=== PATIENT | female | born 1990 | race Two or more races ===

== ENCOUNTER 2020-11-09 13:45 | Inpatient (IN) | payer OTHER ==
[~2020-11-09] VITALS: Ht 162.6 cm; Wt 92.1 kg
[2020-11-25] MEDS ORDERED: PRENATAL CAPLE1 EAC1 PO (11:23)
[2020-11-25] MEDS ORDERED: FOLIC ACID20 MG PO (11:23)
== END 2020-11-27 13:41 | disposition home or self-care (01) | DRG 807 ==
LOC: OB/GYN 11-25 09:51 → LDR 11-25 09:51 → OB/GYN 11-25 19:24
PROVIDERS: ADMIT Obstetrics & Gynecology; ATTEND Obstetrics & Gynecology
PROC: 10E0XZZ Delivery of Products of Conception, External Approach (ICD-10-PCS; principal; 2020-11-25)
PROC: 4A1HXFZ Monitoring of Products of Conception, Cardiac Rhythm, External Approach (ICD-10-PCS; 2020-11-25)
PROC: BY4FZZZ Ultrasonography of Third Trimester, Single Fetus (ICD-10-PCS; 2020-11-25)
DX: O42.12 Full-term premature rupture of membranes, onset of labor more than 24 hours following rupture (principal); Z37.0 Single live birth; Z3A.39 39 weeks gestation of pregnancy

== ENCOUNTER 2020-11-25 06:00 | Outpatient (CLI) | payer OTHER ==
[2020-11-25] MEDS ORDERED: FOLIC ACID20 MG PO (11:23)
[2020-11-25] MEDS ORDERED: PRENATAL CAPLE1 EAC1 PO (11:23)
== END 2020-11-25 09:51 | disposition still patient (30) ==
LOC: OBS/DEL 06:00
PROVIDERS: ATTEND Obstetrics & Gynecology
DX: O47.1 False labor at or after 37 completed weeks of gestation (principal); Z3A.39 39 weeks gestation of pregnancy